=== PATIENT | female | born 1960 | race Caucasian/White ===

== ENCOUNTER → 2016-02-25 09:07 | Day surgery (SDC) | payer OTHER ==
--- NOTE | 2016-02-19 20:22 | HP ---
PREOPERATIVE HISTORY AND PHYSICAL: DATE OF SURGERY/ADMISSION: 02/25/16 DATE OF OFFICE VISIT/ENCOUNTER: 02/19/16 ATTENDING SURGEON: Stephanie Freire MD. PROCEDURE: Left wrist distal ulnar hemiresection. CHIEF COMPLAINT: Left wrist pain. HISTORY OF PRESENT ILLNESS: This is a 56-year-old female with long history of left wrist pain, whic h started back in March of 2010. At the time, she was employed working at a [employer] and w as doing a lot of repetitive work with all day long. She had a history at that time of a dist al ulnar excision that was performed in 2000 and had a repeat procedure in May of 2010. Unfortuna tely, her left wrist pain has persisted and a CT scan that was performed in 2015 showed osteophyte a t the distal ulna. The patient has pain with range of motion at the wrist, particularly supination and pronation of the forearm. Dr. Freire is recommending a repeat removal of the distal ulna with a distal ulnar hemiresection at this time. The patient has consented to proceed. PAST MEDICAL HISTORY: Unremarkable. PAST SURGICAL HISTORY: Left wrist surgery x2. MEDICATIONS: [id number]-[id number] Advil and naproxen p.r.n. ALLERGIES: No known drug allergies. FAMILY MEDICAL HISTORY: Unremarkable. SOCIAL HISTORY: The patient is employed at [employer]. She is a former smoker, quit 10 years ago, prior to that, she was smoking a 1/4 of a pack per day for 15 years. She denies illicit drug use and denies alcohol use. REVIEW OF SYSTEMS: General: Negative for fevers, chills, or night sweats. No known anesthesia pro blems. HEENT: Negative for headache, lightheadedness, or syncopal episodes. Integumentary: Negat marvin for abrasions, lesions, or open wounds. Cardiothoracic: Negative for chest pain, palpitations or edema. Negative for hypertension. Pulmonary: Negative for shortness of breath with exertion, c hronic cough, or COPD. GI: Negative for nausea, vomiting, diarrhea, constipation, or GERD. : N egative for nocturia, urinary frequency, urgency, history of UTIs, or kidney problems. Musculoskele merrill: Positive for current complaint. Negative for chronic or intermittent back pain or history of fractures. Neurological: Negative for paresthesias, numbness, history of seizures, stroke or epilep sy. Endocrine: Negative for diabetes or thyroid issues. Hematological: Negative for easy bruising , anemia, excessive bleeding or history of DVT. Infectious Disease: Negative for history of MRSA, h epatitis C, HIV. PHYSICAL EXAMINATION GENERAL: Well-developed, well-nourished 56-year-old female, in no acute distress. VITALS SIGNS: Height 5 feet 3-1/2 inches, weight 173 pounds, pulse rate 73, blood pressure 116/78. HEENT: Normocephalic, atraumatic. Pupils are equal, round, and reactive to light and accommodation . Extraocular movements are intact. NECK: Supple. No palpable lymph nodes. Throat is clear. CARDIOTHORACIC: Regular rate and rhythm. S1 and S2. No murmurs, rubs, or gallops. No edema. PULMONARY: Lungs are clear to auscultation bilaterally. No wheezes, rales, or rhonchi. ABDOMEN: Positive bowel sounds, soft, nontender. MUSCULOSKELETAL: On exam of her left wrist, she has tenderness to palpation at the distal radioulna r joint. Decreased motion with pronation and supination and increased pain if she moves her forearm through those motions. She has near full extension, but decreased in the amount of flexion availab le at the wrist. She can make a full fist and neurovascular function is intact. NEUROLOGICAL: Alert and oriented x3. Cranial nerves II through XII are intact. Sensation is intact to light touch. IMAGING STUDIES: CT scan of the left wrist shows an ulnar minus variance with remodelling of the d istal radius and the distal ulna suggestive of ulnar impingement. 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 PLAN: The patient is scheduled to undergo a left wrist distal ulnar hemiresection with Dr. Freire on 02/25/16. She will return to the office in 10 to 14 days postop for followup and suture removal. A prescription for Orion was e-scribed to the patient's pharmacy for postoperative pain management. MANUEL HERCULES [id number]/[facility] #: [id number]
[~2016-02-25 09:07] MED LIST: Buffered Lidocaine 1% SYR 3ML* 3 ML/SYR SYRINGE INTRADERM ONE; Buffered Lidocaine 1% SYR 3ML* 3 ML/SYR SYRINGE ONE; Bupivacaine 0.5% SDV PF* 30 ML VIAL ONE; DiMENhydriNATE IV* 50 MG/ML VIAL IV PUSH PRN; HYDROcodone/ACETAMIN 5-325 MG* 1 TAB PO PRN; Ketorolac INJ* 30 MG/ML 1 ML VIAL ONE; Lidocaine 0.5%* 50 ML SDV ONE; Midazolam* 1 MG/ML 5 ML VIAL (5 MG) ONE; Ondansetron INJ* 2 MG/ML VIAL IV PRN; Propofol* 10 MG/ML 20 ML BTL IV PUSH ONE; ceFAZolin 2 GM PREMIX (*) 2 GM/50 ML BAG IVPB ONE; fentaNYL* 50 MCG/ML 2 ML VIAL (100 MCG VIAL) IV PRN; fentaNYL* 50 MCG/ML 2 ML VIAL (100 MCG VIAL) ONE; oxyCODONE TAB* 5 MG TAB PO PRN
[2016-02-25 12:50] VITALS: BP 123/78
--- NOTE | 2016-02-26 00:48 | OP ---
DATE OF OPERATION: 02/25/[address] [facility] DATE OF : 60 SURGEON: Dr. Freire FINANCIAL PROJECT MANAGER: MANUEL Dowling. ANESTHESIOLOGIST: Azam Stringer MD ANESTHESIA: IV regional. 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 OPERATIVE PROCEDURE: Left distal ulnar hemiresection. ESTIMATED BLOOD LOSS: Zero. TOURNIQUET TIME: About half an hour. INDICATIONS FOR PROCEDURE: Pastora is a 56-year-old woman who has distal radioulnar joint arthritis. She has previously had a distal ulna hemiresection , has recurrence of osteophytes and presents for removal, again distal ulna hemiresection. DESCRIPTION OF PROCEDURE: The patient was brought to the operating room, was given an IV regional anesthetic with a tourniquet around her left forearm. The skin of her left hand and forearm was prepped and draped in the usual sterile fashion. A longitudinal incision was made in the previous scar and we dissected bluntly down to the extensor retinaculum. The retinaculum was incised longitudinally in the fifth compartment and then the distal radioulnar joint capsule incised longitudinally. The recurrent osteophytes were removed with the saw and rongeur and then the wound was copiously irrigated with saline. The distal radioulnar joint capsule was reapproximated with 2-0 Polysorb suture. The skin edges were then reapproximated with 4-0 nylon suture and the wound was dressed with Xeroform, 4x4, Webril, and a sugar-tong splint in neutral rotation. The patient tolerated the procedure well and was brought to the recovery room in good condition. [id number]/[facility] #: [id number] [facility]
== END | disposition home or self-care (01) ==
LOC: OREAST 09:07
PROVIDERS: ATTEND Orthopaedic Surgery
DX: M19.132 Post-traumatic osteoarthritis, left wrist (principal); Z87.891 Personal history of nicotine dependence
CPT/HCPCS: 88304; 88311; J0690; J1885; J2250; J2704; J3010

== ENCOUNTER 2016-05-03 07:31 | Emergency (ER) | payer BC, OTHER ==
[2016-05-03 07:44] VITALS: BP 130/73
--- NOTE | 2016-05-03 08:04 | UC ---
Throat Pain/Nasal [place] HPI - History of Current Complaint Stated Complaint: SORE THROAT,SINUS Time Seen by Provider: 05/03/16 07:36 Hx Obtained From: Patient Hx Last Menstrual Period: 2 yrs ?: No Onset/Duration: Gradual Onset, Lasting Days - 5, Worse Since - this morning. Severity: Moderate Cough: Nonproductive Associated Signs & Symptoms: Positive: Dysphagia, Hoarseness, Sinus Discomfort, Nasal Discharge - Epiglottits Risk Factors Epiglottis Risk Factors: Negative - Allergies/Home Medications Allergies/Adverse Reactions: Allergies Allergy/AdvReac Type Severity Reaction Status Date / Time No Known Allergies Allergy Verified 05/03/16 07:40 Home Medications: Home Medications Kisnyugdyciur-Ydcnjxczor-Opmfy [Ariane-Marcellus Plus Day/Nig] 2 cap PO Q4H PRN [History Confirmed 05/03/16] PMH/Surg Hx/FS Hx/Imm Hx Previously Healthy: Yes Cardiovascular History Of: Denies: Hypertension Respiratory History Of: Denies: Asthma - Surgical History Surgical History: Yes Surgery Procedure, Year, and Place: Bone chips in left wrist, 2010 and 1999 - Family History Known Family History: Positive: Hypertension Negative: Cardiac Disease, Diabetes - Social History Occupation: Employed Full-time Lives: With Family - with BF Alcohol Use: None Substance Use Type: None Smoking Status (MU): Former Smoker Have You Smoked in the Last Year: No When Did the Patient Quit Smoking/Using Tobacco: ~2008 - Immunization History Most Recent Influenza Vaccination: Not the 2015/2016 Season Review of Systems ENT: Sore Throat Respiratory: Cough Musculoskeletal: Myalgia Neurological: Headache All Other Systems Reviewed And Are Negative: Yes Physical Exam Triage Information Reviewed: Yes Appearance: No Pain Distress, Well-Nourished, Ill-Appearing Vital Signs: Initial Vital Signs Temp 98.3 F 05/03/16 07:38 Pulse 70 05/03/16 07:38 Resp 16 05/03/16 07:38 BP 130/73 05/03/16 07:38 Pulse Ox 100 05/03/16 07:38 Vital Signs Reviewed: Yes Eyes: Positive: Conjunctiva Clear ENT: Positive: Nasal congestion, TMs normal Neck: Positive: Tenderness @ - right anterior cervical lymph nodes. Respiratory: Positive: Wheezing - expiratory wheeze with coughing. Cardiovascular Exam: Normal Musculoskeletal Exam: Normal Neurological Exam: Normal Psychological Exam: Normal Skin Exam: Normal Throat Pain/Nasal Course/Dx - Differential Dx/Diagnosis Differential Diagnosis/HQI/PQRI: Pharyngitis, Sinusitis, URI Provider Diagnoses: Acute URI. Acute sinusitis. Acute Bronchospasm Discharge - Discharge Plan Condition: Stable Disposition: HOME Prescriptions: Amoxicillin (*) [Amoxicillin 875 MG (*)] 875 mg PO BID #20 tab predniSONE TAB* [Deltasone TAB*] 20 mg PO DAILY #18 tab Patient Education Materials: Upper Respiratory Infection (ED), Sinusitis (ED), Amoxicillin (By mouth), Bronchospasm (ED), Prednisone (By mouth) Referrals: Marisela Fajardo MD [Primary Care Provider] - 2 Weeks (Recheck lungs and blood pressure.)
== END 2016-05-03 08:17 | disposition home or self-care (01) ==
LOC: UCCORT 07:31
DX: J06.9 Acute upper respiratory infection, unspecified (principal); J01.90 Acute sinusitis, unspecified; J98.01 Acute bronchospasm; Z87.891 Personal history of nicotine dependence
CPT/HCPCS: 87651; 99212; G0463

== ENCOUNTER 2016-06-26 15:15 | Emergency (ER) | payer BC, OTHER ==
[2016-06-26 16:15] VITALS: BP 130/81
[2016-06-26] MEDS ORDERED: Naproxen TAB* 250 MG PO ONE (16:26)
--- NOTE | 2016-06-26 16:32 | UC ---
Knee Pain HPI - HPI Summary HPI Summary: patient was at work and her right foot got caught in a strap ttwisted and fell loanding on both knees. they are bruised and swollen, she feels like the right knee cap is pulling to the right - History of Current Complaint Chief Complaint: UCLowerExtremity Stated Complaint: S/P FALL BILATERAL KNEE WC Time Seen by Provider: 06/26/16 16:12 Hx Obtained From: Patient Hx Last Menstrual Period: 2 yrs ?: No Onset/Duration: Sudden Onset, Lasting Hours Severity Initially: Moderate Severity Currently: Moderate Character: Sharp, Spasmodic, Stiffness Aggravating Factor(s): Movement, Weight Bearing, Prolonged Standing, Stairs Alleviating Factor(s): Rest Associated Signs And Symptoms: Positive: Swelling, Bruising Able to Bear Weight: Yes - Allergies/Home Medications Allergies/Adverse Reactions: Allergies Allergy/AdvReac Type Severity Reaction Status Date / Time No Known Allergies Allergy Verified 06/26/16 16:15 Home Medications: Home Medications Naproxen TAB* [Naprosyn 250 mg TAB*] 500 mg PO Q8H PRN 06/26/16 [History Confirmed 06/26/16] PMH/Surg Hx/FS Hx/Imm Hx Previously Healthy: Yes Cardiovascular History Of: Denies: Hypertension Respiratory History Of: Denies: Asthma - Surgical History Surgical History: Yes Surgery Procedure, Year, and Place: Bone chips in left wrist, 2010 and 1999 - Family History Known Family History: Positive: Hypertension Negative: Cardiac Disease, Diabetes - Social History Alcohol Use: None Substance Use Type: None Smoking Status (MU): Former Smoker Have You Smoked in the Last Year: No When Did the Patient Quit Smoking/Using Tobacco: ~2008 - Immunization History Most Recent Influenza Vaccination: Not the Season Review of Systems Constitutional: Negative Skin: Bruising Eyes: Negative ENT: Negative Respiratory: Negative Cardiovascular: Negative Gastrointestinal: Negative Genitourinary: Negative Motor: Negative Neurovascular: Negative Musculoskeletal: Arthralgia, Decreased ROM, Edema Neurological: Negative Psychological: Negative All Other Systems Reviewed And Are Negative: Yes Physical Exam Triage Information Reviewed: Yes Appearance: Well-Appearing, Well-Nourished, Pain Distress Vital Signs: Initial Vital Signs Temp 98.6 F 06/26/16 16:10 Pulse 86 06/26/16 16:10 Resp 14 06/26/16 16:10 BP 130/81 06/26/16 16:10 Pulse Ox 98 06/26/16 16:10 Vital Signs Reviewed: Yes Eye Exam: Normal Eyes: Positive: Conjunctiva Clear ENT Exam: Normal ENT: Positive: Hearing grossly normal, Pharynx normal, TMs normal Dental Exam: Normal Neck exam: Normal Neck: Positive: Supple, Nontender, No Lymphadenopathy Respiratory Exam: Normal Respiratory: Positive: Chest non-tender, Lungs clear, Normal breath sounds Cardiovascular Exam: Normal Cardiovascular: Positive: RRR, No Murmur, Pulses Normal Abdominal Exam: Normal Abdomen Description: Positive: Nontender, No Organomegaly, Soft Bowel Sounds: Positive: Present Musculoskeletal: Positive: Strength Intact - able to bear weight, ROM Limited @ - in flx and ext bilaterally, Edema @ - bilateral knees Neurological Exam: Normal Psychological Exam: Normal Skin: Positive: Other - bruising over bilateral patellas Knee Pain Course/Dx - Course Course Of Treatment: hx obtained, exam performed, med reviewed, naproxen given and xray obtained, - Differential Dx/Diagnosis Differential Diagnosis/HQI/PQRI: Bursitis, Contusion, Dislocation, Internal Derangement Of Knee, Patellofemoral Syndrome, Sprain, Strain Provider Diagnoses: bilateral knee contusion. bilateral patellar bursitis Discharge - Discharge Plan Condition: Stable Disposition: HOME Patient Education Materials: Knee Bursitis (ED), Contusion in Adults (ED) Forms: *Work Release Referrals: Marisela Fajardo MD [Primary Care Provider] - Ervin Machado MD [Medical Doctor] - Additional Instructions: 1. rest 2. ice on and off 20 minutes at a time for the next 2 days, 3. use the compression wraps for swelling reduction along with naproxen 500 mg twice a day 4.keep legs elevated and supported under the knees, 5. work through the Range of Motion 4-5 times a day, 6. if not improving in the next week follow up with orthopedics.
--- NOTE | 2016-06-26 17:05 | RAD ---
Indication: Fall directly onto both knees. Pain, bruising, swelling in the patellar regions. Comparison: No relevant prior exams available on the [facility]. Technique: AP and lateral views of the bilateral knees. REPORT AND IMPRESSION: RIGHT knee: Bone density appears decreased. Negative for effusion, fracture, malalignment, or abnormal soft tissue contour. Preserved joint spaces. LEFT knee: Bone density appears decreased throughout. Negative for effusion, fracture, or malalignment. Preserved joint spaces. Mild anterior soft tissue swelling.
== END 2016-06-26 17:16 | disposition home or self-care (01) ==
LOC: UCCORT 15:15
DX: S80.02XA Contusion of left knee, initial encounter (principal); S80.01XA Contusion of right knee, initial encounter; W19.XXXA Unspecified fall, initial encounter; Y93.9 Activity, unspecified; Y92.9 Unspecified place or not applicable; M70.42 Prepatellar bursitis, left knee; M70.41 Prepatellar bursitis, right knee; Z87.891 Personal history of nicotine dependence
CPT/HCPCS: 99212; A9270-GY; G0463

== ENCOUNTER 2016-10-18 17:54 | Emergency (ER) | payer BC, OTHER ==
[2016-10-18 19:21] VITALS: BP 123/73
--- NOTE | 2016-10-18 19:38 | UC ---
Lower Extremity/Ankle HPI - HPI Summary HPI Summary: Patient stepped off the side of a curb, twisted ankle and heard a snap. pain along the lateral side of the left ankle, mild swelling noted. happened 8 hours ago. - History of Current Complaint Chief Complaint: UCLowerExtremity Stated Complaint: LEFT ANKLE INJURY Hx Obtained From: Patient Hx Last Menstrual Period: 2 yrs ?: No Onset/Duration: Sudden Onset, Lasting Hours Severity Initially: Moderate Severity Currently: Moderate Aggravating Factor(s): Standing, Ambulation Alleviating Factor(s): Rest Able to Bear Weight: Yes - Allergies/Home Medications Allergies/Adverse Reactions: Allergies Allergy/AdvReac Type Severity Reaction Status Date / Time No Known Allergies Allergy Verified 10/18/16 19:21 PMH/Surg Hx/FS Hx/Imm Hx Previously Healthy: Yes - Surgical History Surgical History: Yes Surgery Procedure, Year, and Place: Bone chips in left wrist, 2010 and 1999 - Family History Known Family History: Positive: Hypertension Negative: Cardiac Disease, Diabetes - Social History Alcohol Use: None Substance Use Type: None Smoking Status (MU): Former Smoker Have You Smoked in the Last Year: No When Did the Patient Quit Smoking/Using Tobacco: ~2008 - Immunization History Most Recent Influenza Vaccination: no Review of Systems Constitutional: Negative Skin: Negative Eyes: Negative ENT: Negative Respiratory: Negative Cardiovascular: Negative Gastrointestinal: Negative Genitourinary: Negative Motor: Negative Neurovascular: Negative Musculoskeletal: Arthralgia, Decreased ROM, Edema, Myalgia Neurological: Negative Psychological: Negative All Other Systems Reviewed And Are Negative: Yes Physical Exam Triage Information Reviewed: Yes Appearance: Well-Appearing, Well-Nourished, Pain Distress Vital Signs: Initial Vital Signs Temp 98.1 F 10/18/16 19:16 Pulse 88 10/18/16 19:16 Resp 14 10/18/16 19:16 BP 123/73 10/18/16 19:16 Pulse Ox 100 10/18/16 19:16 Vital Signs Reviewed: Yes Eye Exam: Normal ENT Exam: Normal Dental Exam: Normal Neck exam: Normal Respiratory Exam: Normal Respiratory: Positive: Chest non-tender, Lungs clear, Normal breath sounds Cardiovascular Exam: Normal Cardiovascular: Positive: RRR, No Murmur, Pulses Normal Abdominal Exam: Normal Abdomen Description: Positive: Nontender, No Organomegaly, Soft Bowel Sounds: Positive: Present Musculoskeletal: Positive: Strength Limited @ - weight bearing limited, ROM Limited @ - in all directions, Edema @ - around lateral and antieror aspect of left ankle Neurological Exam: Normal Psychological Exam: Normal Skin Exam: Normal Lower Extremity Course/Dx - Course Course Of Treatment: hx obtained, exam performed ,meds reviewed, patient refeused any pain medication, xray obtained neg for fracture, leanna and gel splint applied - Differential Dx/Diagnosis Differential Diagnosis/HQI/PQRI: Contusion, Dislocation, Fracture (Closed), Sprain, Strain Provider Diagnoses: left ankle sprain Discharge - Discharge Plan Condition: Stable Disposition: HOME Patient Education Materials: Ankle Sprain (ED) Additional Instructions: Rest, ice, compress with the leanna wrap, immobilize with the gel splint, elevate at rest. Ibuprofen for pain and swelling, if not improving follow up with Dr grider
--- NOTE | 2016-10-18 19:58 | RAD ---
INDICATION: Left ankle injury. TECHNIQUE: 3 views of the left ankle were obtained. FINDINGS: Soft tissue swelling is noted along the anterolateral aspect of the ankle. No fracture is seen. Joint spaces appear maintained. IMPRESSION: SOFT TISSUE SWELLING, NO FRACTURE IS SEEN.
== END 2016-10-18 20:13 | disposition home or self-care (01) ==
LOC: UCCORT 17:54
DX: S93.402A Sprain of unspecified ligament of left ankle, initial encounter (principal); X50.1XXA Overexertion from prolonged static or awkward postures, initial encounter; Z87.891 Personal history of nicotine dependence
CPT/HCPCS: 99213; G0463

== ENCOUNTER 2017-05-16 07:04 | Emergency (ER) | payer BC ==
[2017-05-16 07:15] VITALS: BP 131/70
--- NOTE | 2017-05-16 07:28 | UC ---
Respiratory Complaint HPI - HPI Summary HPI Summary: Patient states she has been coughing for the past 3 weeks, has been trying OCD and home remedies to no avail. She took some left over amoxil twice a day for 4 days and stopped 2 days ago since it was not working. Denies fever, sore throat , nasal congestion or tobacco. She takes naproxen for occasional OA flares but no other meds other than that. - History of Current Complaint Chief Complaint: UCRespiratory Stated Complaint: COUGH Time Seen by Provider: 05/16/17 07:20 Hx Obtained From: Patient Hx Last Menstrual Period: 2 yrs ?: No Onset/Duration: Gradual Onset, Lasting Weeks Timing: Constant Severity Initially: Mild Severity Currently: Moderate Pain Intensity: 0 Character: Cough: Nonproductive Alleviating Factors: Nothing Associated Signs And Symptoms: Positive: Negative - Risk Factors Pulmonary Embolism Risk Factors: Negative Cardiac Risk Factors: Negative Pseudomonas Risk Factors: Negative Tuberculosis Risk Factors: Negative - Allergies/Home Medications Allergies/Adverse Reactions: Allergies Allergy/AdvReac Type Severity Reaction Status Date / Time No Known Allergies Allergy Verified 05/16/17 07:15 PMH/Surg Hx/FS Hx/Imm Hx Previously Healthy: Yes - Surgical History Surgical History: Yes Surgery Procedure, Year, and Place: Bone chips in left wrist, 2010 and 1999 - Family History Known Family History: Positive: Hypertension Negative: Cardiac Disease, Diabetes - Social History Alcohol Use: Rare Substance Use Type: None Smoking Status (MU): Former Smoker Have You Smoked in the Last Year: No When Did the Patient Quit Smoking/Using Tobacco: ~2008 - Immunization History Most Recent Influenza Vaccination: no Review of Systems Respiratory: Cough All Other Systems Reviewed And Are Negative: Yes Physical Exam Triage Information Reviewed: Yes Appearance: Well-Appearing, Well-Nourished Vital Signs: Initial Vital Signs Temp 98.8 F 05/16/17 07:11 Pulse 70 05/16/17 07:11 Resp 16 05/16/17 07:11 BP 131/70 05/16/17 07:11 Pulse Ox 100 05/16/17 07:11 Vital Signs Reviewed: Yes Eyes: Positive: Conjunctiva Clear ENT: Positive: Pharyngeal erythema, TMs normal, Uvula midline Neck: Positive: Supple, Nontender, No Lymphadenopathy Respiratory: Positive: Chest non-tender, Lungs clear, Normal breath sounds, No respiratory distress Cardiovascular: Positive: RRR, No Murmur, Pulses Normal, Brisk Capillary Refill UC Diagnostic Evaluation - Laboratory O2 Sat by Pulse Oximetry: 100 Respiratory Course/Dx - Course Course Of Treatment: Continue oral hydration, start trial of flovent 100mcg bid for 10 days. F/u PCP - Differential Dx/Diagnosis Provider Diagnoses: Reactive airway disease Discharge - Sign-Out/Discharge Documenting (check all that apply): Discharge - Discharge Plan Condition: Stable Disposition: HOME Referrals: Marisela Fajardo MD [Primary Care Provider] - - Billing Disposition and Condition Condition: STABLE Disposition: HOME
== END 2017-05-16 07:32 | disposition home or self-care (01) ==
LOC: UCEAST 07:04
DX: J45.909 Unspecified asthma, uncomplicated (principal); Z87.891 Personal history of nicotine dependence
CPT/HCPCS: 99212; G0463